=== PATIENT | female | born 1960 | race Caucasian/White ===

== ENCOUNTER 2017-02-03 19:01 | Emergency (ER) | payer OTHER ==
[2017-02-03 19:35] VITALS: BP 105/77
--- NOTE | 2017-02-03 21:24 | ERNOTE ---
ENT HPI Time Seen by Provider: 02/03/17 21:12 - Immun/Allergies/Home Medications Immunizations: IMMUNIZATION HX Immunizations Up to Date Yes History of Influenza Vaccine Yes Hx Pneumococcal Vaccination Yes Allergies/Adverse Reactions: Allergies Allergy/AdvReac Type Severity Reaction Status Date / Time Adhesive Bandage Allergy Unknown Verified 09/25/15 12:24 *RETIRED-04/20/13 [Adhesive Bandage] metronidazole [From Flagyl] Allergy Unknown Verified 09/25/15 12:24 Metronidazole HCl Allergy Unknown Verified 09/25/15 12:24 [From Flagyl] Home Medications: HOME MEDICATIONS Aripiprazole [Abilify] 10 mg PO DAILY 07/23/12 [Last Taken 07/23/12] Citalopram Hydrobromide [Celexa] 40 mg PO DAILY 07/23/12 [Last Taken 07/23/12] Clonazepam 2 mg PO HS 09/25/15 [Last Taken Unknown] Fenofibrate 150 mg PO DAILY 09/25/15 [Last Taken Unknown] Hydroxyzine HCl 25 mg PO Q4H PRN 09/25/15 [Last Taken Unknown] Loratadine [Claritin] 10 mg PO DAILY 09/25/15 [Last Taken Unknown] Nabumetone [Relafen] 500 mg PO BID #60 tablet 09/25/15 [Last Taken Unknown] lamoTRIgine [Lamictal] 150 mg PO DAILY 09/25/15 [Last Taken Unknown] - History of Present Illness Narrative: pt c/o sore throat today. no fever. Review of Systems - Review of Systems Constitutional: Present: See HPI ENT: Present: sore throat - Patient's Past Medical History Patient History - Medical: Anxiety, Arthritis, Bipolar, Depression Patient History - Cardiac/Respiratory: Asthma, Bronchitis, COPD, Hyperlipidemia Patient History - Cancer: No Hx of Cancer Patient History - Surgical Procedures: Appendectomy, Cholecystectomy, Colon Resection, D & C Patient History - Other: None - Family History Mother Family History - Medical: Father Family History - Medical: - Social History Living Situations: home Abuse History: No History of abuse Psych History: No pertinent hx Smoking Status: Current every day smoker Patient requests Smoking Cessation Consult: No Initiate information on Smoking Cessation: No Alcohol Use: rarely Drug Use: none, other - Immunizations Immunizations Up to Date: Yes Hx Pneumococcal Vaccination: Yes History of Influenza Vaccine: Yes Physical Exam - Physical Exam General Appearance: Present: wd/wn, alert, no apparent distress - vss no fever. Eye Exam: Normal inspection: bilateral, PERRL: bilateral, EOMI: bilateral Ears, Nose, Throat: Present: normal except -, pharyngeal erythema, pharyngeal swelling. Absent: tonsillar exudate, tonsillar swelling Neck: Present: normal inspection, nontender. Absent: lymphadenopathy (R), lymphadenopathy (L) Respiratory: Present: no respiratory distress, normal breath sounds, no accessory muscle use, chest nontender, lungs clear Cardiovascular/Chest: Present: regular rate, rhythm, no murmur, normal peripheral pulses ED Progress - Results and Orders Patient's Lab Results:: I have reviewed the patient's lab results. Results and Orders: strep screen is negative. - Vital Signs Patient's Vital Signs:: I have reviewed the patient's vital signs. Vital Signs: Vital Signs 02/03/17 19:20 Temperature 37.2 C Pulse Rate 91 Respiratory 19 Rate Blood Pressure 105/77 O2 Sat by Pulse 99 Oximetry - Progress/Reassessment Chief Complaint: Sore Throat Departure Clinical Impression: Sore throat (viral) - Departure Disposition: Home Follow Up Needed Condition: Good Instructions: Sore Throat, [id number], Rapid Strep Test, Pharyngitis, Easy-to -Read Additional Instructions: gargle with warm salt water for discomfort. use chloraseptic spray or lozenges for comfort. You may take tylenol or ibuprofen for aches and pains or fever. your strep screen is negative so there is no need for antibiotic now. We will call you if the strep culture, which takes 2 days , becomes positive. Referrals: Carmen Mari FNP [Primary Care Provider] -
== END 2017-02-03 21:51 | disposition home or self-care (01) ==
LOC: ER 19:01
DX: J02.8 Acute pharyngitis due to other specified organisms (principal); F17.200 Nicotine dependence, unspecified, uncomplicated; F31.9 Bipolar disorder, unspecified; F41.9 Anxiety disorder, unspecified; M19.90 Unspecified osteoarthritis, unspecified site

== ENCOUNTER 2017-08-08 11:35 | Emergency (ER) | payer OTHER ==
[2017-08-08 12:15] LABS: Hemoglobin 13.6 gm/dL (12.5-16.0); Mean Cell Volume 86.8 fl (78-100); Mean Corpuscular Hemoglobin 29.5 pg (27-31); Mean Platelet Volume 8.7 fl (6.0-9.5); Neutrophil # 5.4 K/mm3 (1.3-6.0); Neutrophil % 55.8 % (42-75.0); Platelet Count 234 K/mm3 (150-450); Red Blood Count 4.61 M/mm3 (4.2-5.4); White Blood Count 9.7 K/mm3 (4.0-10.5)
[2017-08-08 12:35] LABS: ALT 22 U/L (19-67); AST 15 U/L (0-48); Albumin * 3.5 gm/dl (3.4-5.0); Alkaline Phosphatase * 61 U/L (50-170); Anion Gap 13.8 mmol/L (6.8-13.8); BUN/Creatinine Ratio 22.2 (9.0-21.6); Bilirubin, Total 0.2 mg/dL (0.0-1.1); Blood Urea Nitrogen 16 mg/dL (3-23); Ca. Corrected For Albumin 8.9 mg/dL (8.4-10.2); Calcium * 8.8 mg/dL (7.9-10.9); Carbon Dioxide 28.1 mmol/L (24-32.6); Chloride 104 mmol/L (97-106); Glucose * 101 mg/dL (70-110); Potassium 3.9 mmol/L (3.4-4.6); Sodium 142 mmol/L (132-142); TSH * 2.021 uIU/mL (0.358-3.74); Total Protein 7.6 gm/dL (6.2-8.2)
--- NOTE | 2017-08-08 12:42 | ERNOTE ---
Psychological HPI - Date Date of Service: 08/08/17 - General Chief Complaint: Psychiatric Problem Source: Reports: patient - Immun/Allergies/Home Medications Allergies/Adverse Reactions: Allergies Adhesive Bandage *RETIRED-04/20/13 [Adhesive Bandage] Allergy (Unknown, Verified 08/08/17 11:51) metronidazole [From Flagyl] Allergy (Unknown, Verified 08/08/17 11:51) Metronidazole HCl [From Flagyl] Allergy (Unknown, Verified 08/08/17 11:51) Home Medications: HOME MEDICATIONS NK [No Home Medication] 08/08/17 [Last Taken Unknown] - History of Present Illness Narrative: Patient is a 56-year-old female with a past medical history significant for bipolar depression and a history of anxiety. She is currently not on any medications right now. He also has a his history of multiple psychiatric admission for suicidal ideation, suicidal attempts or suicidal gesture. She returns to the emergency room today for worsening of her depression, and suicidal ideation. She reports historically that the holidays are very difficult for her. She wanted to overdose on her Tegretol which she took in the past for her bipolar. She reports feeling well, and guilty, and depressed because of recent challenges that she is going through. She has this who has a history of epilepsy and she reports going to financial difficulties. She reports a have been supportive Time Seen by Provider: 08/08/17 12:14 Arrived by: Reports: private car Intent: Reports: suicide, prior thoughts of suicide, wants to escape Mechanism: Reports: overdose Associated Symptoms: Reports: depressed, angry, frustrated, suicidal thoughts Review of Systems - Review of Systems Constitutional: Present: See HPI EYE: Present: see HPI ENT: Present: See HPI Respiratory: Present: See HPI Cardiology: Present: See HPI Gastrointestinal/Abdominal: Present: See HPI Genitourinary: Present: See HPI Musculoskeletal: Present: See HPI Skin: Present: See HPI Endocrine: Present: See HPI Hematologic/Lymphatic: Present: See HPI Psych: Present: depressed, emotional problems - Patient's Past Medical History Patient History - Medical: Anxiety, Arthritis, Bipolar, Depression Patient History - Cardiac/Respiratory: Asthma, Bronchitis, COPD, Hyperlipidemia Patient History - Cancer: No Hx of Cancer Patient History - Surgical Procedures: Appendectomy, Cholecystectomy, Colon Resection, D & C Patient History - Other: None LMP (females 10-50): Menopausal - Family History Mother Family History - Medical: Father Family History - Medical: - Social History Living Situations: home Abuse History: No History of abuse Psych History: No pertinent hx Smoking Status: Current every day smoker - Immunizations Immunizations Up to Date: Yes Hx Pneumococcal Vaccination: No History of Influenza Vaccine: No Psychological Exam - Exam General Appearance: Present: wd/wn, alert, crying Head Exam: Present: normal inspection, no evidence of injury Neurological: Present: alert, normal mood/affect, command center analyst II-XII nml as tested, anxious, depressed affect Thoughts/Hallucinations: Present: normal thought pattern Behavior/Eye Contact/Speech: Present: avoids eye contact, decreased rate of speech Eye Exam: Normal inspection: bilateral, PERRL: bilateral, EOMI: bilateral Ears, Nose, Throat: Present: normal ENT inspection Neck: Present: normal inspection, nontender, supple, full range of motion Respiratory: Present: no respiratory distress, normal breath sounds, no accessory muscle use, chest nontender, lungs clear Cardiovascular/Chest: Present: regular rate, rhythm, no murmur, normal peripheral pulses Gastrointestinal/Abdominal: Present: normal bowel sounds, nontender, nondistended, soft Back Exam: Present: normal inspection, normal range of motion Extremity Exam: Present: normal inspection Skin Exam: Present: normal color, warm/dry, no cyanosis Lymphatic Exam: Present: no adenopathy ED Progress - Results and Orders Patient's Lab Results:: I have reviewed the patient's lab results. - Vital Signs Patient's Vital Signs:: I have reviewed the patient's vital signs. Vital Signs: Vital Signs 08/08/17 08/08/17 11:47 12:13 Temperature 36.3 C L 36.3 C L Pulse Rate 71 71 Respiratory 17 17 Rate Blood Pressure 153/97 153/97 O2 Sat by Pulse 100 100 Oximetry - EKG EKG: NSR - Progress/Reassessment Chief Complaint: Psychiatric Problem Progress:: Unchanged - Transfer of Care Expected Disposition: Transfer Departure Clinical Impression: Depression with suicidal ideation Depression Qualifiers: Depression Type: major depressive disorder Major depression recurrence: recurrent Active/Remission status: currently active Major depression episode severity: severe Psychotic features: without psychotic features Qualified Code(s ): F33.2 - Major depressive disorder, recurrent severe without psychotic features - Departure Disposition: Transferred to other hospital Condition: Stable
[2017-08-08 13:09] LABS: Urine Bilirubin Negative (NEGATIVE); Urine Blood 25 /ul (NEGATIVE); Urine Ketone Negative (NEGATIVE); Urine Nitrite Negative (NEGATIVE); Urine Protein Negative (NEGATIVE); Urine Urobilinogen Normal (NORMAL)
[2017-08-08 13:16] LABS: Urine Appearance Slightly Cloudy; Urine Bacteria TRACE; Urine Color Yellow; Urine RBC None Seen /hpf (0-5); Urine WBC TRACE /hpf (0-5)
[2017-08-08 13:21] LABS: Cocaine Ur Negative (NEGATIVE); Urine Barbiturate Negative (NEGATIVE); Urine Benzodiazepines Negative (NEGATIVE); Urine Opiates Negative (NEGATIVE); Urine PCP Negative (NEGATIVE); Urine THC Negative (NEGATIVE)
[2017-08-08] MEDS ORDERED: IBUPROFEN 600 MG TABLET PO ONE (15:37)
[2017-08-08] MEDS ORDERED: IBUPROFEN 600 MG TABLET ONE (15:48)
[2017-08-08 17:29] VITALS: BP 103/67
== END 2017-08-08 16:57 | disposition short-term general hospital (02) ==
LOC: ER 11:35
DX: F33.2 Major depressive disorder, recurrent severe without psychotic features (principal); R45.851 Suicidal ideations; F17.200 Nicotine dependence, unspecified, uncomplicated
CPT/HCPCS: 36415; 80053; 80307; 81001; 84443; 85025; 93005; 99285; G0480; G0481